=== PATIENT | female | born 1990 | race Caucasian/White ===

== ENCOUNTER 2018-01-05 08:14 | Emergency (ER) | payer OTHER ==
[~2018-01-05] VITALS: Ht 170.2 cm; Wt 61.2 kg
[2018-01-05 08:18] VITALS: Ht 170.2 cm; Wt 61.2 kg
[2018-01-05 10:26] VITALS: BP 117/67
== END 2018-01-05 10:53 | disposition home or self-care (01) ==
LOC: ED 08:14
DX: T21.21XA Burn of second degree of chest wall, initial encounter (principal); T22.211A Burn of second degree of right forearm, initial encounter; T20.20XA Burn of second degree of head, face, and neck, unspecified site, initial encounter; T31.11 Burns involving 10-19% of body surface with 10-19% third degree burns; X08.8XXA Exposure to other specified smoke, fire and flames, initial encounter; Y93.89 Activity, other specified; Y92.89 Other specified places as the place of occurrence of the external cause; Y99.8 Other external cause status
CPT/HCPCS: 90715

== ENCOUNTER 2018-08-16 10:01 | Emergency (ER) | payer OTHER | END 2018-08-16 10:12 | disposition left against medical advice (07) | LOC: ED 10:01 | DX: Z53.21 Procedure and treatment not carried out due to patient leaving prior to being seen by health care provider (principal) ==